=== PATIENT | male | born 1960 | race Caucasian/White ===

== ENCOUNTER 2017-01-11 07:26 | Emergency (ER) | payer OTHER ==
[2017-01-11] MEDS ORDERED: IPRATROPIUM/ALBUTEROL 3 ML DEYVIAL IH ONE (07:56)
--- NOTE | 2017-01-11 08:00 | UCPHY ---
H & P Patient Type: New Time Seen by Provider: 01/11/17 07:49 HPI/ROS: CHIEF COMPLAINT: Cough, congestion HISTORY OF PRESENT ILLNESS: Patient is a 56-year-old man who comes to the Urgent Care complaining of a cough and congestion over the last 3 days. He has not had a fever at home. He denies shortness of breath or chest pain. He denies abdominal pain. He does have a history of hypertension but recently moved here from [place] and is not currently taking any medications. He denies any history of respiratory disease or smoking. REVIEW OF SYSTEMS: Constitutional: denies: chills, fever, recent illness, recent injury EENTM: denies: blurred vision, double vision, nose congestion Respiratory: See HPI Cardiac: denies: chest pain, irregular heart rate, lightheadedness, palpitations Gastrointestinal/Abdominal: denies: abdominal pain, diarrhea, nausea, vomiting, blood streaked stools Genitourinary: denies: dysuria, frequency, hematuria, pain Musculoskeletal: denies: joint pain, muscle pain Skin: denies: lesions, rash, jaundice, bruising Neurological: denies: headache, numbness, paresthesia, tingling, dizziness, weakness Hematologic/Lymphatic: denies: blood clots, easy bleeding, easy bruising Immunologic/allergic: denies: HIV/AIDS, transplant EXAM: GENERAL: Well-appearing, well-nourished and in no acute distress. HEAD: Atraumatic, normocephalic. EYES: Pupils equal round and reactive to light, extraocular movements intact, sclera anicteric, conjunctiva are normal. ENT: TMs normal, nares patent, oropharynx clear without exudates. Moist mucous membranes. NECK: Normal range of motion, supple without lymphadenopathy or JVD. LUNGS: Bilateral wheezing HEART: Regular rate and rhythm without murmurs, rubs or gallops. ABDOMEN: Soft, nontender, normoactive bowel sounds. No guarding, no rebound. No masses appreciated. BACK: No CVA tenderness, no spinal tenderness, step-offs or deformities EXTREMITIES: Normal range of motion, no pitting or edema. No clubbing or cyanosis. NEUROLOGICAL: Cranial nerves II through XII grossly intact. Normal speech, normal gait. 5/5 strength, normal movement in all extremities, normal sensation PSYCH: Normal mood, normal affect. SKIN: Warm, dry, normal turgor, no visible rashes or lesions. Source: Patient Exam Limitations: No limitations - Personal History Current Tetanus/Diphtheria Vaccine: Yes - Medical/Surgical History Hx Asthma: No Hx Chronic Respiratory Disease: No Hx Diabetes: No Hx Cardiac Disease: No Hx Renal Disease: No Hx Cirrhosis: No - Family History Significant Family History: No pertinent family hx - Social History Smoking Status: Never smoked Alcohol Use: Sober Drug Use: None Constitutional: Initial Vital Signs Temperature (C) 38.2 C 01/11/17 07:55 Heart Rate 120 H 01/11/17 07:55 Respiratory Rate 16 01/11/17 07:55 Blood Pressure 172/90 H 01/11/17 07:55 O2 Sat (%) 91 L 01/11/17 07:55 O2 Delivery Mode Room Air Allergies/Adverse Reactions: No Known Allergies Allergy (Unverified 01/11/17 08:02) Home Medications: Medication Instructions Recorded Albuterol [Proventil Inhaler] 1 - 2 puffs IH Q4H #1 mdi 01/11/17 levOFLOXACIN [levAQUIN] 750 mg PO DAILY #10 tab 01/11/17 Medical Decision Making - Diagnostics EKG Interpretation: An EKG obtained and was read and documented in trace view. Please see trace view for full reading and report. Sinus tachycardia, no acute ischemic changes , nonspecific T-wave inversions in lead 3. Imaging: X-ray: chest x-ray was obtained. I viewed the images myself on the PACS system. My interpretation of the images is: Lower lobe infiltrate. The radiologist interpretation is pending. ED Course/Re-evaluation: We discussed the patient's elevated blood pressure. He has a history of hypertension. The past he has been on antihypertensive as well as a cholesterol medication. He cannot remember the name of it. I offered to refill his medications are start him on something new. He decided he will call his physician from [place] to get a refill. On re-evaluation the patient is febrile and tachycardic and slightly hypoxic at 88%. His breath sounds have improved after the DuoNeb. We discussed the need to obtain lab work and IV fluids and initiate sepsis workup. The patient may require hospitalization. His x-ray does appear to have a small right lower lobe infiltrate. 10:00 a.m. the analyzer here is broken for lactate and chemistry. We will send by carrier to [facility]. Patient is responding well to fluids and antipyretics. His heart rate is down to 100 and his saturation on room air is 93%. He is feeling much better. We will continue to hydrate and observed. He is receiving a dose of IV Levaquin. His x-ray is read as bronchitis no pneumonia. He did respond well to albuterol. 11:15 a.m. the patient is feeling completely better. His heart rate is 86 and his oxygen saturation is 93% on room air. He is eager to go home and declines further observation or admission. His lactate and chemistries are not back because of lab machine malfunction. They have been couriered over to [facility]. I gave him strict instructions to return or go to the emergency department if his symptoms worsen. He and his understand agree with this plan. They declined admission at this point. I do feel that he is safe for discharge on outpatient antibiotics. Differential Diagnosis: Partial list of the Differential diagnosis considered include but were not limited to; bronchitis, hypoxia, reactive airway disease, pneumonia and although unlikely based on the history and physical exam, I also considered PE, acute coronary disease, pulmonary edema. I discussed these differential diagnoses and the plan with the patient as well as the usual and expected course. The patient understands that the diagnosis is provisional and that in medicine we are not always correct and that further workup is often warranted. Usual and customary warnings were given. All of the patient's questions were answered. The patient was instructed to return to the emergency department should the symptoms at all worsen or return, otherwise to followup with the physician as we discussed. - Data Points Laboratory Results: Laboratory Results 01/11/17 08:55 01/11/17 08:55 01/11/17 01/11/17 01/11/17 Unknown 08:55 08:55 WBC RBC Hgb Hct MCV MCH MCHC RDW Plt Count MPV Neut % (Auto) Lymph % (Auto) [place] % (Auto) Eos % (Auto) Baso % (Auto) Nucleat RBC Rel Count Absolute Neuts (auto) Absolute Lymphs (auto) Absolute Monos (auto) Absolute Eos (auto) Absolute Basos (auto) Absolute Nucleated RBC Immature Gran % Immature Gran # PT 13.2 SEC SEC (12.0-15.0) INR 1.03 (0.83-1.16) APTT 33.8 SEC SEC (23.0-38.0) VBG Lactic Acid Sodium 138 mEq/L mEq/L (134-144) Potassium 4.0 mEq/L mEq/L (3.5-5.2) Chloride 100 mEq/L mEq/L (97-110) Carbon Dioxide 26 mEq/l mEq/l (22-31) Anion Gap 12 mEq/L mEq/L (8-16) BUN 14 mg/dL mg/dL (7-23) Creatinine 0.8 mg/dL mg/dL (0.7-1.3) Estimated GFR > 60 Glucose 124 mg/dL H mg/dL (70-100) Calcium 9.3 mg/dL mg/dL (8.5-10.4) Total Bilirubin 1.1 mg/dL mg/dL (0.1-1.4) Influenza Typ A,B (DFA) Group A Strep Screen Group A Strep DNA Pending 01/11/17 01/11/17 01/11/17 08:55 08:55 07:55 WBC 10.49 10^3/uL H 10^3/uL (3.80-9.50) RBC 5.51 10^6/uL 10^6/uL (4.40-6.38) Hgb 15.5 g/dL g/dL (13.7-17.5) Hct 45.0 % % (40.0-51.0) MCV 81.7 fL fL (81.5-99.8) MCH 28.1 pg pg (27.9-34.1) MCHC 34.4 g/dL g/dL (32.4-36.7) RDW 13.4 % % (11.5-15.2) Plt Count 221 10^3/uL 10^3/uL (150-400) MPV 10.0 fL fL (8.7-11.7) Neut % (Auto) 79.0 % H % (39.3-74.2) Lymph % (Auto) 7.2 % L % (15.0-45.0) [place] % (Auto) 13.0 % % (4.5-13.0) Eos % (Auto) 0.0 % L % (0.6-7.6) Baso % (Auto) 0.2 % L % (0.3-1.7) Nucleat RBC Rel Count 0.0 % % (0.0-0.2) Absolute Neuts (auto) 8.29 10^3/uL H 10^3/uL (1.70-6.50) Absolute Lymphs (auto) 0.76 10^3/uL L 10^3/uL (1.00-3.00) Absolute Monos (auto) 1.36 10^3/uL H 10^3/uL (0.30-0.80) Absolute Eos (auto) 0.00 10^3/uL L 10^3/uL (0.03-0.40) Absolute Basos (auto) 0.02 10^3/uL 10^3/uL (0.02-0.10) Absolute Nucleated RBC 0.00 10^3/uL 10^3/uL (0-0.01) Immature Gran % 0.6 % % (0.0-1.1) Immature Gran # 0.06 10^3/uL 10^3/uL (0.00-0.10) PT INR APTT VBG Lactic Acid 1.1 mmol/L mmol/L (0.7-2.1) Sodium Potassium Chloride Carbon Dioxide Anion Gap BUN Creatinine Estimated GFR Glucose Calcium Total Bilirubin Influenza Typ A,B (DFA) Group A Strep Screen NEGATIVE (NEGATIVE) Group A Strep DNA 01/11/17 07:50 WBC RBC Hgb Hct MCV MCH MCHC RDW Plt Count MPV Neut % (Auto) Lymph % (Auto) [place] % (Auto) Eos % (Auto) Baso % (Auto) Nucleat RBC Rel Count Absolute Neuts (auto) Absolute Lymphs (auto) Absolute Monos (auto) Absolute Eos (auto) Absolute Basos (auto) Absolute Nucleated RBC Immature Gran % Immature Gran # PT INR APTT VBG Lactic Acid Sodium Potassium Chloride Carbon Dioxide Anion Gap BUN Creatinine Estimated GFR Glucose Calcium Total Bilirubin Influenza Typ A,B (DFA) NEGATIVE FOR FLU (NEGATIVE) Group A Strep Screen Group A Strep DNA Medications Given: Discontinued Medications Acetaminophen (Tylenol) 1,000 mg PO EDNOW ONE Stop: 01/11/17 08:43 Last Admin: 01/11/17 08:43 Dose: Not Given Albuterol/Ipratropium (Duoneb) 3 ml IH EDNOW ONE Stop: 01/11/17 07:57 Last Admin: 01/11/17 08:15 Dose: 3 ml Levofloxacin/Dextrose (Levaquin 750 Mg (Premix)) 150 mls @ 100 mls/hr IV EDNOW ONE PRN Reason: Protocol Stop: 01/11/17 10:10 Last Admin: 01/11/17 09:00 Dose: 150 mls Ibuprofen (Motrin) 600 mg PO EDNOW ONE Stop: 01/11/17 08:51 Last Admin: 01/11/17 07:45 Dose: 600 mg Sodium Chloride (Ns *For Sepsis Order Set Only*) 3,402 ml 30 ml/kg (3402 ml) IV EDNOW ONE Stop: 01/11/17 08:42 Last Admin: 01/11/17 09:00 Dose: 3,402 ml Departure - Departure Disposition: Home, Routine, Self-Care Clinical Impression: Bronchitis Condition: Fair Instructions: Acute Bronchitis (ED) Additional Instructions: Use the albuterol inhaler Up to every 2 hours as needed for cough or wheezing or shortness of breath Referrals: NONE *PRIMARY CARE P,. [Primary Care Provider] - As per Instructions Prescriptions: Albuterol [Proventil Inhaler] 1 - 2 puffs IH Q4H #1 mdi levOFLOXACIN [levAQUIN] 750 mg PO DAILY #10 tab - PQRS PQRS Measurement: 134: Depression screening and followup, PRIME MD-PHQ2 (12 years and older) Over the last 2 weeks, how often have you been bothered by any of the following problems? 1. Feeling down, depressed, or hopeless? 2. Little interest or pleasure in doing things? Patient answered no to both 1 and 2 130: Documentation of medications. Reviewed all patient medications, doses, route and frequency. 226: Do you smoke? No. 47: 65 and older: Advanced care planning. Patient designates surrogate decision maker as spouse . Patient has advanced directive. 51: 18 years old and older with diagnosis of COPD, spirometry performance. Spirometry not performed; equipment not available. 52: 18 years old and older with COPD and symptoms of COPD or FEV1<60% predicted prescribed a B Agonist. Not applicable
[2017-01-11 08:02] VITALS: RESP 16
[2017-01-11] MEDS ORDERED: IBUPROFEN 200 MG TAB PO ONE (08:08)
--- NOTE | 2017-01-11 08:31 | CPEKG ---
Heart Rate: 115 RR Interval: 522 P-R Interval: 172 QRSD Interval: 108 QT Interval: 312 QTC Interval: 432 P Jewell: 39 QRS Jewell: 125 T Wave Jewell: -16 EKG Severity - ABNORMAL ECG - EKG Impression: SINUS TACHYCARDIA EKG Impression: LEFT POSTERIOR FASCICULAR BLOCK EKG Impression: BORDERLINE INFERIOR Q WAVES EKG Impression: BORDERLINE T ABNORMALITIES, INFERIOR LEADS Electronically Signed By: Anatoliy Rodgers 11-Jan-2017 08:44:50
[2017-01-11] MEDS ORDERED: NS 1,000 ML BAG *FOR SEPSIS ORDER SET ONLY IV ONE (08:41)
[2017-01-11] MEDS ORDERED: ACETAMINOPHEN 500 MG TAB PO ONE (08:42)
[2017-01-11] MEDS ORDERED: IBUPROFEN 600 MG TAB PO ONE (08:50)
[2017-01-11 09:32] LABS: % IMMATURE GRANULYOCYTES 0.6 % (0.0-1.1); ABSOLUTE IMMATURE GRANULOCYTES 0.06 10^3/uL (0.00-0.10); ADD DIFF? NO; ADD MORPH? NO; ADD SCAN? NO; ATYPICAL LYMPHOCYTE FLAG 20 (0-99); FRAGMENT RBC FLAG 0 (0-99); HEMOGLOBIN 15.5 g/dL (13.7-17.5); LEFT SHIFT FLG 0 (0-99); LIPEMIA HEMOLYSIS FLAG 90 (0-99); MEAN CELL HEMOGLOBIN 28.1 pg (27.9-34.1); MEAN CELL HEMOGLOBIN CONCENTR. 34.4 g/dL (32.4-36.7); MEAN CELL VOLUME 81.7 fL (81.5-99.8); PLATELET CLUMPS FLAG 10 (0-99); PLATELET COUNT 221 10^3/uL (150-400); RED BLOOD CELL COUNT 5.51 10^6/uL (4.40-6.38); RED CELL DISTRIBUTION WIDTH 13.4 % (11.5-15.2)
[2017-01-11 09:41] LABS: INR 1.03 (0.83-1.16); PROTIME(PATIENT) 13.2 SEC (12.0-15.0)
[2017-01-11 09:42] LABS: APTT 33.8 SEC (23.0-38.0)
[2017-01-11 11:46] LABS: ANION GAP 12 mEq/L (8-16); BILIRUBIN,TOTAL 1.1 mg/dL (0.1-1.4); CALCIUM 9.3 mg/dL (8.5-10.4); CARBON DIOXIDE 26 mEq/l (22-31); CHLORIDE 100 mEq/L (97-110); CREATININE 0.8 mg/dL (0.7-1.3); GLOMERULAR FILTRATION RATE > 60; GLUCOSE 124 mg/dL (70-100); SODIUM 138 mEq/L (134-144)
[2017-01-11 11:49] VITALS: BP 133/77; PULSE 96; TEMP 98.2; O2SAT 95
== END 2017-01-11 11:49 | disposition home or self-care (01) ==
LOC: CED 07:26
DX: J40 Bronchitis, not specified as acute or chronic (principal); I10 Essential (primary) hypertension
CPT/HCPCS: 71020-PO; 80048-PO; 82247-PO; 83605-PO; 85025-PO; 85610-PO; 85730-PO; 87400-PO; 87880-PO; 93010-PO; 96361-PO; 96365-PO; 99205-PO; G0463-PO; J1956